=== PATIENT | male | born 1965 | race Caucasian/White ===

== ENCOUNTER 2024-11-27 10:53 | Inpatient (IN) ==
[2024-11-27] MEDS: NITROGLYCERIN SL 0.4 MG/TAB TAB SL PRN (11:12)
[2024-11-27] MEDS: ASPIRIN CHEW 324 MG PO STA (11:12)
[2024-11-27] MEDS: HEPARIN SOD (PORCINE) 1000 UNIT/ML IV ONE (11:18)
[2024-11-27] MEDS: TICAGRELOR 90 MG TAB PO ONE (11:19)
--- NOTE | 2024-11-27 11:20 | Emergency Department Note ---
Impression & Plan ST elevation myocardial infarction (STEMI), Chest pain, Hypertensive emergency ED Provider Note NAME: SIERRA RAMOS AGE: 59 SEX: M : 1965 ARRIVES VIA: Walk-In INFORMANT: Patient, nursing report ED PROVIDER(S): Ajit Arora MD CHIEF COMPLAINT: Chest pain MEDICAL DECISION MAKING: Patient presents due to concern for chest pain. IV was established and blood work was obtained. Initial EKG concerning some repeat obtained. Patient does have subtle changes inferiorly with associated lateral depressions and T wave inversions that are more pronounced. Patient was given the rest of 162 of aspirin as well as 180 of Brilinta. Nitro given for chest pain. Repeat blood pressure improved after nitro. Given these acute findings without prior for comparison do believe the patient would benefit from emergent [employer] intervention. Heart alert was called. I did speak with Dr. Leblanc he did evaluate the patient at the bedside. Patient ordered heparin bolus and drip. Nitro is ordered for chest pain. Patient reportedly had an episode of bradycardia that was brief with the patient dropped in the 40s and blood pressure was in the 100s. Patient was reassessed did feel a bit pale but the patient states that he was feeling fine. Patient's chest pain is virtually resolved. Patient was ordered 500 IV fluid bolus. Patient was receiving the heparin drip. Patient's blood work showed a normal white count H&H and platelet count. The patient's kidney function is unremarkable. BSG at 234 with initial troponin of 33.3. Lipase negative. The patient was reassessed several times thereafter. The patient did have an increase in his blood pressure and given the significant drop in associated bradycardia he experienced with the 0.4 mg of nitro and Nitropaste was ordered. This was placed on the chest. Patient did have improvement in his blood pressure. Patient was subsequently taken to the [facility] for intervention. I did speak with the on-call hospitalist service MARTHA Paulino PA-C and the patient was admitted to to the medicine service under Dr. Banda. Critical Care: I have personally spent 75 minutes of critical care time in direct management of this patient. This includes bedside care, interpretation of diagnostic studies, and testing, discussion with consultants, patient, and family members, and other require inpatient management activities. This 75 minutes is in excess of all separately billable procedures. Discussion w/ other healthcare providers: Dr. Leblanc mayonnaise mixer Dr. Banda inpatient hospitalist Prior /Outside records reviewed: None Differential diagnosis: Cardiac ischemia, aortic dissection, pulmonary embolism, pneumothorax, pneumonia, pericarditis, myocarditis, GERD, cholecystitis, pancreatitis, musculoskeletal, as well as other pathologies were considered. Diagnostics, as interpreted by me: ECG: Sinus with sinus arrhythmia, rate of 80, normal intervals, normal axis, trace elevation inferiorly with depressions in lateral leads. Repeat EKG completed 6 minutes later Sinus with sinus arrhythmia rate of 77 normal intervals normal axis, Q-wave more apparent in lead III with subtle elevation inferiorly with depressions anteriorly and laterally. Also present high lateral leads. Cardiac monitoring: An order was placed for continuous cardiac monitoring. The monitor shows a rate of 77 With sinus rhythm. Patient was placed on pulse oximetry Medical decision rules: Heart score Imaging studies: I informally interpreted the patient's with formal report to follow. HPI: Patient presents due to concern for chest pain that began around 6 8 AM this morning. The patient states that he got into the shower and that it presented. The patient did take 3 ibuprofen and 2 baby aspirin. No significant change. Patient does take medication for hypertension, hyperlipidemia and diabetes. Patient does follow with [facility]. Patient denies any cough or fever no leg swelling or calf pain. The patient did states that he did have some exertional pain when he was lifting some boxes on Friday. Patient states that this went away but returned this morning. The patient describes it as dull and achy centralized nonradiating some mild clamminess but no nausea or vomiting. Patient denies any history of DVT or PE. No leg swelling or calf pain. PAST MEDICAL HISTORY: Hypertension, hyperlipidemia, type 2 diabetes PAST SURGICAL HISTORY: No pertinent past surgical history SOCIAL HISTORY: Speaks Russian. Denies tobacco use. HOME MEDICATIONS: See Below ALLERGIES: See Below VITALS: See Below PHYSICAL EXAMINATION: GENERAL: NAD, non-toxic. EYE EXAM: Normal conjunctiva. PERRL, no anisocoria and EOM's grossly intact w/o pain. OROPHARYNX: Moist mucus membranes, grossly normal dentition. NECK: Trachea midline, no stridor. Supple, no nuchal rigidity, no adenopathy, non-tender. No signs of meningismus. FROM of the neck with good chin to chest and neck extension. LUNGS: Clear to auscultation. Normal chest wall mechanics. HEART: NSR, no MRG. ABDOMEN: Abdomen soft, non-tender, no masses, no rebound or guarding. BACK: No CVA TTP. SKIN: No rashes and no bruising. UPPER EXTREMITIES: Upper extremities are grossly normal. LOWER EXTREMITIES: Grossly normal, no edema. Negative Homans' sign bilaterally. NEURO EXAM: A&O x3, cranial nerves II-XII grossly intact, normal speech, moves all 4 extremities. 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 Beliefs That Will Affect Care: None Current Living Situation: Spouse Other Information That Helps Us Care for You: No Feels Safe at Home: Yes Assistive Devices: Glasses Allergies Allergies Allergy/AdvReac Type Severity Reaction Status Date / Time No Known Allergies Allergy Unverified 11/27/24 11:56 Home Meds Home Medications Medication Instructions Recorded Confirmed aspirin 81 mg chewable tablet 81 mg PO DAILY 11/27/24 11/27/24 atorvastatin 40 mg tablet 40 mg PO DAILY 11/27/24 11/27/24 ibuprofen 1 tab PO DIRECTED PRN Pain 11/27/24 11/27/24 lisinopril 10 mg tablet 10 mg PO DAILY 11/27/24 11/27/24 metformin 500 mg tablet 500 mg PO DAILY 11/27/24 11/27/24 Results & Data (ED) Vital Signs Vital Signs - 24 hr 11/27/24 10:56 11/27/24 11:05 11/27/24 11:06 Temperature 36.9 C Temperature Source Temporal Artery Scan Pulse Rate 69 Pulse Rate [Apical] 90 91 H Pulse Rate from SpO2 Sensor Pulse Rhythm [Apical] Respiratory Rate 20 15 17 Respiratory Effort / Characteristics Non-Labored Respiratory Depth Normal Blood Pressure 174/90 H Blood Pressure [Right Arm] 184/123 H Blood Pressure Mean 118 Blood Pressure Mean [Right Arm] 143 Pulse Oximetry 100 99 98 Oxygen Delivery Method Room Air Room Air Sepsis Recent Fever Within 48 Hours No Sepsis New/Unexplained Change in Mental Status No Sepsis Action Taken by Nursing No Action Required 11/27/24 11:06 11/27/24 11:06 11/27/24 11:09 Temperature Temperature Source Pulse Rate 91 H Pulse Rate [Apical] Pulse Rate from SpO2 Sensor 88 Pulse Rhythm [Apical] Respiratory Rate 20 Respiratory Effort / Characteristics Respiratory Depth Blood Pressure 184/123 H 184/123 H Blood Pressure [Right Arm] Blood Pressure Mean 136 136 Blood Pressure Mean [Right Arm] Pulse Oximetry 99 Oxygen Delivery Method Sepsis Recent Fever Within 48 Hours Sepsis New/Unexplained Change in Mental Status Sepsis Action Taken by Nursing 11/27/24 11:14 11/27/24 11:14 11/27/24 11:15 Temperature Temperature Source Pulse Rate Pulse Rate [Apical] 90 79 Pulse Rate from SpO2 Sensor Pulse Rhythm [Apical] Irregular Respiratory Rate 20 18 Respiratory Effort / Characteristics Respiratory Depth Blood Pressure 176/110 H Blood Pressure [Right Arm] 176/110 H 157/101 H Blood Pressure Mean 120 Blood Pressure Mean [Right Arm] 132 119 Pulse Oximetry 99 98 Oxygen Delivery Method Room Air Room Air Sepsis Recent Fever Within 48 Hours Sepsis New/Unexplained Change in Mental Status Sepsis Action Taken by Nursing 11/27/24 11:15 11/27/24 11:15 11/27/24 11:15 Temperature Temperature Source Pulse Rate 103 H Pulse Rate [Apical] Pulse Rate from SpO2 Sensor 100 H Pulse Rhythm [Apical] Respiratory Rate 17 Respiratory Effort / Characteristics Respiratory Depth Blood Pressure 157/101 H 157/101 H Blood Pressure [Right Arm] Blood Pressure Mean 118 118 Blood Pressure Mean [Right Arm] Pulse Oximetry 98 Oxygen Delivery Method Sepsis Recent Fever Within 48 Hours Sepsis New/Unexplained Change in Mental Status Sepsis Action Taken by Nursing 11/27/24 11:15 11/27/24 11:22 11/27/24 11:25 Temperature Temperature Source Pulse Rate Pulse Rate [Apical] 51 L Pulse Rate from SpO2 Sensor Pulse Rhythm [Apical] Respiratory Rate 20 Respiratory Effort / Characteristics Respiratory Depth Blood Pressure 157/101 H Blood Pressure [Right Arm] 115/73 Blood Pressure Mean 118 Blood Pressure Mean [Right Arm] 87 Pulse Oximetry 97 Oxygen Delivery Method Room Air Room Air Sepsis Recent Fever Within 48 Hours Sepsis New/Unexplained Change in Mental Status Sepsis Action Taken by Nursing 11/27/24 11:25 11/27/24 11:30 11/27/24 11:35 Temperature Temperature Source Pulse Rate Pulse Rate [Apical] 84 72 Pulse Rate from SpO2 Sensor Pulse Rhythm [Apical] Respiratory Rate 17 19 Respiratory Effort / Characteristics Respiratory Depth Blood Pressure Blood Pressure [Right Arm] 139/80 142/100 H Blood Pressure Mean Blood Pressure Mean [Right Arm] 99 114 Pulse Oximetry 96 96 Oxygen Delivery Method Room Air Room Air Room Air Sepsis Recent Fever Within 48 Hours Sepsis New/Unexplained Change in Mental Status Sepsis Action Taken by Nursing 11/27/24 11:45 11/27/24 11:50 11/27/24 12:00 Temperature Temperature Source Pulse Rate 96 H Pulse Rate [Apical] 90 92 H Pulse Rate from SpO2 Sensor Pulse Rhythm [Apical] Respiratory Rate 20 14 Respiratory Effort / Characteristics Respiratory Depth Blood Pressure Blood Pressure [Right Arm] 171/103 H 163/98 H Blood Pressure Mean Blood Pressure Mean [Right Arm] 125 119 Pulse Oximetry 98 97 Oxygen Delivery Method Room Air Room Air Sepsis Recent Fever Within 48 Hours Sepsis New/Unexplained Change in Mental Status Sepsis Action Taken by Nursing 11/27/24 12:10 11/27/24 12:13 Temperature Temperature Source Pulse Rate Pulse Rate [Apical] 93 H Pulse Rate from SpO2 Sensor Pulse Rhythm [Apical] Respiratory Rate 17 Respiratory Effort / Characteristics Respiratory Depth Blood Pressure Blood Pressure [Right Arm] Blood Pressure Mean Blood Pressure Mean [Right Arm] Pulse Oximetry 97 Oxygen Delivery Method Room Air Room Air Sepsis Recent Fever Within 48 Hours Sepsis New/Unexplained Change in Mental Status Sepsis Action Taken by [facility] Medications Current Medication List: was personally reviewed by me Laboratory Data Attestation: I reviewed the patient's lab results. 11/27/24 15:22 11/27/24 11:10 Lab Results 11/27/24 11/27/24 11/27/24 Range/Units 11:10 11:11 12:35 WBC 10.41 (4.8-10.8) K/ul RBC 5.65 (4.70-6.10) M/uL Hgb 17.0 (14.0-18.0) g/dl Hct 48.9 (42.0-52.0) % MCV 86.5 (80.0-100.0) fL MCH 30.1 (25.0-34.0) pg MCHC 34.8 (32.0-36.0) g/dL RDW Std Deviation 39.4 (36.4-46.3) fL RDW Coeff of Hui 12.4 (11.5-14.5) % Plt Count 228 (130-400) K/uL MPV 10.3 (9.4-12.4) fL Immature Gran % (Auto) 0.4 % Neut % (Auto) 77.1 % Lymph % (Auto) 15.2 % Desha % (Auto) 6.3 % Eos % (Auto) 0.6 % Baso % (Auto) 0.4 % Neut # (Auto) 8.03 H (1.40-6.50) K/uL Lymph # (Auto) 1.58 (1.20-3.40) K/uL Desha # (Auto) 0.66 H (0.11-0.59) K/uL Eos # (Auto) 0.06 (0.00-0.50) K/uL Baso # (Auto) 0.04 (0.00-0.20) K/uL Immature Gran # (Auto) 0.04 (0.01-0.20) K/uL PT 10.9 (9.0-12.0) Seconds INR 1.0 (0.9-1.1) APTT 23 (21-31) Seconds PTT Ratio 0.9 Activ Coag Time Kaolin 141 H (94-140) SECONDS Sodium 136 (136-145) mmol/L Potassium 3.6 (3.5-5.1) mmol/L Chloride 101 (98-107) mmol/L Carbon Dioxide 24 (21-32) mmol/L Anion Gap 11 (3-11) BUN 10 (6-23) mg/dl Creatinine 1.38 (0.6-1.4) mg/dl Est Cr Clr Drug Dosing 54.4 ml/min eGFR 58.18 BUN/Creatinine Ratio 7.2 L (10-20) Glucose 234 H (70-99(Fasting)) mg/dl Calcium 9.3 (8.6-10.3) mg/dl Total Bilirubin 0.8 (0.2-1.0) mg/dl AST 20 (13-39) U/L ALT 23 (7-52) U/L Alkaline Phosphatase 66 (34-104) U/L Troponin I High Sens 33.3 H (0-20) pg/ml Total Protein 7.6 (6.0-8.3) gm/dl Albumin 4.8 (3.4-5.0) gm/dl Globulin 2.8 (2.5-4.0) gm/dl Albumin/Globulin Ratio 1.7 (0.9-2) Lipase 28 (11-82) U/L Blood Type B Positive Antibody Screen NEGATIVE Administered Medications Discontinued Medications Aspirin (Aspirin Chew 324 Mg) 162 mg PO NOW STA Stop: 11/27/24 11:08 Last Admin: 11/27/24 11:12 Dose: 162 mg Documented By: DWAYNE Atropine Sulfate (Atropine Sulfate 0.1 Mg/Ml 10ml Syr) Confirm Administered Dose 1 mg IV .STK-MED ONE Stop: 11/27/24 13:03 Last Admin: 11/27/24 14:26 Dose: 0.5 mg Documented By: ANA LILIA Eptifibatide (Eptifibatide 2 Mg/Ml 10 Ml Vial ([employer] Use Only)) Confirm Administered Dose 40 mg IV .STK-MED ONE Stop: 11/27/24 13:17 Last Admin: 11/27/24 14:26 Dose: 12 ml Documented By: ANA LIILA Eptifibatide (Eptifibatide 0.75 Mg/Ml 75mg Vial ([employer] Use Only)) Confirm Administered Dose 75 mg IV .STK-MED ONE Stop: 11/27/24 13:18 Last Admin: 11/27/24 14:27 Dose: 75 mg Documented By: ANA LILIA Fentanyl Citrate (Fentanyl Citrate Pf 100 Mcg/2 Ml Vial) Confirm Administered Dose 100 mcg .ROUTE .STK-MED ONE Stop: 11/27/24 11:16 Last Admin: 11/27/24 14:25 Dose: 100 mcg Documented By: ANA LILIA Heparin Sodium (Porcine) (Heparin Sod (Porcine) 1000 Unit/Ml) 4,250 units IV NOW ONE Stop: 11/27/24 11:11 Last Admin: 11/27/24 11:18 Dose: 4,250 units Documented By: JOSE L Co-signed By: DWAYNE Heparin Sodium (Porcine) (Heparin (Porcine) 1000 Unit/Ml 10 Ml ([employer] Use Only)) Confirm Administered Dose 10,000 units .ROUTE .STK-MED ONE Stop: 11/27/24 11:15 Last Admin: 11/27/24 14:25 Dose: 9,500 units Documented By: ANA LILIA Heparin Sodium (Porcine) (Heparin (Porcine) 1000 Unit/Ml 10 Ml ([employer] Use Only)) Confirm Administered Dose 10,000 units .ROUTE .STK-MED ONE Stop: 11/27/24 14:32 Last Admin: 11/27/24 14:33 Dose: 1,000 units Documented By: ANA LILIA Heparin Sodium/Dextrose (Heparin Iv Adult Wt-Based Low-Dose *No* Initial Bolus Protocol) 1 each IV ONE STA; Protocol Stop: 11/27/24 11:15 Last Admin: 11/27/24 15:12 Dose: Not Given Documented By: LAURA Heparin Sodium/Sodium Chloride (Heparin In Nss Infusion 1000 Unit/500 Ml (2 U/Ml) Bag) Confirm Administered Dose 3,000 units IV .STK-MED ONE Stop: 11/27/24 11:16 Last Admin: 11/27/24 12:25 Dose: 3,000 units Documented By: ANA LILIA Heparin Sodium/Dextrose (Heparin 90726 Unit/500 Ml D5w) 25,000 units in 500 mls @ 17 mls/hr IV .Q24H [facility]; Protocol Stop: 12/27/24 11:29 Last Titration: 11/27/24 15:13 Dose: Infused Documented By: LAURA Co-signed By: MILENA Admin: 11/27/24 11:47 Dose: 850 units/hr, 17 mls/hr Documented By: DWAYNE Co-signed By: ALTAGRACIA Sodium Chloride (Nss) 500 mls @ 999 mls/hr IV .Q31M ONE Stop: 11/27/24 12:09 Last Infusion: 11/27/24 12:07 Dose: Infused Documented By: JOSE L Admin: 11/27/24 11:30 Dose: 999 mls/hr Documented By: DWAYNE Ioversol (Optiray 350) Confirm Administered Dose 1 ml .ROUTE .STK-MED ONE Stop: 11/27/24 11:16 Last Admin: 11/27/24 14:25 Dose: 445 ml Documented By: EDWINA Midazolam HCl (Midazolam Hcl 1 Mg/Ml 2ml Vial) Confirm Administered Dose 2 mg .ROUTE .STK-MED ONE Stop: 11/27/24 11:15 Last Admin: 11/27/24 14:25 Dose: 2 mg Documented By: ANA LILIA Midazolam HCl (Midazolam Hcl 1 Mg/Ml 2ml Vial) Confirm Administered Dose 2 mg .ROUTE .STK-MED ONE Stop: 11/27/24 12:33 Last Admin: 11/27/24 14:26 Dose: 2 mg Documented By: ANA LILIA Nicardipine HCl (Nicardipine Hcl Inj 2.5 Mg/Ml 10 Ml Amp) Confirm Administered Dose 25 mg .ROUTE .STK-MED ONE Stop: 11/27/24 11:16 Last Admin: 11/27/24 12:27 Dose: 25 mg Documented By: ANA LILIA Nitroglycerin (Nitroglycerin Sl 0.4 Mg/Tab Tab) 0.4 mg SL Q5M PRN PRN Reason: Chest Pain Stop: 12/27/24 11:06 Last Admin: 11/27/24 11:18 Dose: 0.4 mg Documented By: JOSE L Admin: 11/27/24 11:12 Dose: 0.4 mg Documented By: DWAYNE Nitroglycerin (Nitroglycerin 2% Ointment 30gm Tube) 1 inch EXT NOW STA Stop: 11/27/24 11:50 Last Admin: 11/27/24 11:56 Dose: 1 inch Documented By: DWAYNE Nitroglycerin/Dextrose (Nitroglycerin/D5w 100mcg/Ml 20ml Syr) Confirm Administered Dose 2,000 mcg .ROUTE .STK-MED ONE Stop: 11/27/24 11:16 Last Admin: 11/27/24 12:27 Dose: 2,000 mcg Documented By: ANA LILIA Ondansetron HCl (Ondansetron Inj 2 Mg/Ml 2 Ml Vial) Confirm Administered Dose 4 mg .ROUTE .ST-MED ONE Stop: 11/27/24 13:12 Last Admin: 11/27/24 14:26 Dose: Not Given Documented By: ANA LILIA Potassium Chloride (Potassium Chloride Crtab 20 Meq Tabcr) 40 meq PO NOW STA Stop: 11/27/24 15:12 Last Admin: 11/27/24 15:18 Dose: 40 meq Documented By: LAURA Ticagrelor (Ticagrelor 90 Mg Tab) 180 mg PO ONE ONE Stop: 11/27/24 11:11 Last Admin: 11/27/24 11:19 Dose: 180 mg Documented By: JOSE L Imaging Data Radiologist's Impression: Chest X-Ray 11/27/24 11:07 HISTORY: Chest pain. TECHNIQUE: Portable AP radiograph of the chest. COMPARISON: conveyor monitor leads overlie the chest. FINDINGS: No focal lung consolidation. No pneumothorax or pleural effusion. Normal heart size. Left-sided aortic arch. Midline trachea. No acute osseous abnormality. The included upper abdomen is unremarkable. IMPRESSION: No acute cardiopulmonary findings. Electronically signed by Jeff Lerma 11-27-2024 12:00 PM Discharge Plan Visit Data Chief Complaint: Chest Pain Stated Complaint: CHEST PAIN ED Provider: Ajit Arora Discharge Problem: ST elevation myocardial infarction (STEMI), Chest pain, Hypertensive emergency Discharge Instructions Interventions: ED Discharge Assessment Last Done: 11/27/24 12:13 Discharge Problem: ST elevation myocardial infarction (STEMI) Qualifiers: Involved coronary artery: right coronary artery Qualified Code(s): I21.11 - ST elevation (STEMI) myocardial infarction involving right coronary artery Chest pain Qualifiers: Chest pain type: unspecified Qualified Code(s): R07.9 - Chest pain, unspecified
[2024-11-27] MEDS: SODIUM CHLORIDE 0.9% 500 ML IV ONE (11:30)
[2024-11-27 11:35] LABS: Basophils # (auto) 0.04 K/uL (0.00-0.20); Basophils % (auto) 0.4 %; Eosinophils # (auto) 0.06 K/uL (0.00-0.50); Eosinophils % (auto) 0.6 %; Hematocrit (blood only) 48.9 % (42.0-52.0); Immature Granulocytes # (auto) 0.04 K/uL (0.01-0.20); Immature Granulocytes % (auto) 0.4 %; Lymphocytes # (auto) 1.58 K/uL (1.20-3.40); Lymphocytes % (auto) 15.2 %; Mean Corpuscular Hemoglobin 30.1 pg (25.0-34.0); Mean Corpuscular Hgb Conc 34.8 g/dL (32.0-36.0); Mean Corpuscular Volume 86.5 fL (80.0-100.0); Mean Platelet Volume 10.3 fL (9.4-12.4); Monocytes # (auto) 0.66 K/uL (0.11-0.59); Monocytes % (auto) 6.3 %; Neutrophils # (auto) 8.03 K/uL (1.40-6.50); Neutrophils % (auto) 77.1 %; Platelet Count 228 K/uL (130-400); RDW Coefficient of Variation 12.4 % (11.5-14.5); RDW Standard Deviation 39.4 fL (36.4-46.3); Red Blood Count 5.65 M/uL (4.70-6.10); White Blood Count 10.41 K/ul (4.8-10.8)
[2024-11-27 11:46] LABS: Albumin Globulin Ratio 1.7 (0.9-2); Albumin Level 4.8 gm/dl (3.4-5.0); BUN Creatinine Ratio 7.2 (10-20); Bilirubin,Total 0.8 mg/dl (0.2-1.0); Calcium 9.3 mg/dl (8.6-10.3); Creatinine Clr Calc Pharmacy 54.4 ml/min; Globulin 2.8 gm/dl (2.5-4.0); Potassium 3.6 mmol/L (3.5-5.1); Total Protein 7.6 gm/dl (6.0-8.3)
[2024-11-27] MEDS: HEPARIN 25000 UNIT/500 ML D5W 25,000 UNITS/500 ML BAG IV SCH (11:47)
[2024-11-27 11:53] LABS: Troponin I High Sensitivity 33.3 pg/ml (0-20)
[2024-11-27] MEDS: NITROGLYCERIN 2% OINTMENT 30GM TUBE EXT STA (11:56)
--- NOTE | 2024-11-27 12:00 | XRay Report ---
HISTORY: Chest pain. TECHNIQUE: Portable AP radiograph of the chest. COMPARISON: quality assurance monitor leads overlie the chest. FINDINGS: No focal lung consolidation. No pneumothorax or pleural effusion. Normal heart size. Left-sided aortic arch. Midline trachea. No acute osseous abnormality. The included upper abdomen is unremarkable. IMPRESSION: No acute cardiopulmonary findings. Electronically signed by Jeff Lerma 11-27-2024 12:00 PM
[2024-11-27 12:12] LABS: Partial Thromboplastin Ratio 0.9; Partial Thromboplastin Time 23 Seconds (21-31); Prothrombin Time 10.9 Seconds (9.0-12.0)
--- NOTE | 2024-11-27 12:12 | Pre Anesthesia Assessment ---
Date of Service November 27, 2024 Pre Sedation Assessment Vital Signs Temp Pulse Pulse Resp BP BP Pulse Ox 11/27/24 12:00 92 H 14 163/98 H 97 11/27/24 11:50 96 H 11/27/24 11:45 90 20 171/103 H 98 11/27/24 11:35 72 19 142/100 H 96 11/27/24 11:30 84 17 139/80 96 11/27/24 11:25 11/27/24 11:25 11/27/24 11:22 51 L 20 115/73 97 11/27/24 11:15 157/101 H 11/27/24 11:15 157/101 H 11/27/24 11:15 157/101 H 11/27/24 11:15 103 H 17 98 11/27/24 11:15 79 18 157/101 H 98 11/27/24 11:14 176/110 H 11/27/24 11:14 90 20 176/110 H 99 11/27/24 11:09 91 H 20 99 11/27/24 11:06 184/123 H 11/27/24 11:06 184/123 H 11/27/24 11:06 91 H 17 184/123 H 98 11/27/24 11:05 90 15 99 11/27/24 10:56 36.9 C 69 20 174/90 H 100 O2 Del Method 11/27/24 12:00 Room Air 11/27/24 11:50 11/27/24 11:45 Room Air 11/27/24 11:35 Room Air 11/27/24 11:30 Room Air 11/27/24 11:25 Room Air 11/27/24 11:25 Room Air 11/27/24 11:22 Room Air 11/27/24 11:15 11/27/24 11:15 11/27/24 11:15 11/27/24 11:15 11/27/24 11:15 Room Air 11/27/24 11:14 11/27/24 11:14 Room Air 11/27/24 11:09 11/27/24 11:06 11/27/24 11:06 11/27/24 11:06 Room Air 11/27/24 11:05 11/27/24 10:56 Room Air Cardiovascular RRR, no murmur, no edema Respiratory normal respiratory effort, lungs clear to auscultation Pre-Sedation Airway Assessment Smoking Status: Never smoker Mallampati 2 ASA 4 Notes The planned sedation has been discussed with the patient. Informed Consent was obtained. I have identified the patient, determined the appropriateness of sedation and have assessed the patient immediately prior to the procedure. All medicine(s) and interventions are by my order. [facility] [place] Procedure Codes (Charges) Indication for Procedure Indication for procedure: Non-ST elevation NM
--- NOTE | 2024-11-27 12:21 | Cardiology Consultation ---
Date of Consultation November 27, 2024 Assessment & Plan (1) Atherogenic dyslipidemia: Patient is high risk (diabetes and CAD). High intensity statin therapy is recommended. He was already on a atorvastatin 40 mg daily. Will check a lipid panel and then adjust his cholesterol regimen as indicated by results. For now he will remain on a atorvastatin 40 mg daily. (2) Non-ST elevation MD (NSTEMI): Patient is EKG does not meet criteria for acute ST elevation MD. He did have inferior Q waves suggesting prior MD and based on the catheterization with significant collaterals to the right most of his disease was chronic. There was some staining proximally which was probably the new part of the MD. Complex PCI was undertaken and eventually he was noted to have good angiographic results after implantation of 4 overlapped drug-eluting stents. No symptoms at this time. Will continue to follow his troponins, check an echocardiogram particularly with regard to EF, and he will remain in ICU for 24 hours as per standard of care. If he has no high risk findings on his troponin or his echo then he may be appropriate for earlier discharge. For now he will be on aspirin 81 mg daily, Brilinta 90 mg p.o. twice daily, we started metoprolol to tartrate 25 mg p.o. twice daily, and we continued his lisinopril but reduced the dose to 5 mg daily. Will see what his blood pressure does and adjust his regimen further. Further recommendations pending results of echo and blood work. (3) Hypertensive emergency: I feel that most likely his symptoms were driven by severe underlying coronary disease with acute hypertensive urgency increasing the workload and making him symptomatic. The EKG changes are most consistent with at presentation although there certainly could have been a small amount of thrombus or acute plaque rupture in the right coronary as well. In any case, it is imperative that we control his blood pressure. Adding beta-oxana and continue lisinopril. I am using IV hydralazine as needed to maintain SBP less than 150 mmHg. Will make additional adjustments in his medical regimen pending on how he responds to this overnight. Plan Approximately 24 hours in ICU per standard of care. If he has an uneventful night then he will be appropriate for stepdown unit tomorrow. Typically would keep acute MD for 48 hours minimum. There is a possibility that he does not have much in the way of troponin elevation and that the hypertensive urgency was the main delivery driver assistant here. In that case, as long as his blood pressure is controlled he could be discharged as early as tomorrow evening. I will follow-up with the patient tomorrow. History of Present Illness Reason for Consultation: Chest pain, EKG changes History of Present Illness 59-year-old diabetic male who is also treated for hypertension and dyslipidemia presented to the emergency department after developing chest pain beginning around 6-8 o'clock this morning. He took aspirin and nonsteroidals at home but his pain did not significantly improved. He therefore came to the emergency department. Here, his blood pressure was very elevated and the EKG was obtained suggesting ischemic changes. He did not meet criteria for ST elevation MD. A "heart alert" was called. On my arrival the patient had significantly improved chest pain only rated about 3-4 in severity. Evidently, he had some intermittent chest pain which was self-limited over the few days prior to this presentation. Unfortunately, I do not have any records from the outpatient setting as he follows with [facility]. I spoke with the emergency department physician to begin immediate medical therapy and we planned for s ubsequent definitive evaluation by coronary angiography. Treatment plan included in addition to the aspirin he already has taken to begin heparin as a bolus followed by drip, Brilinta 180 mg p.o. x 1, and treatment for his elevated blood pressures. This resulted in significant improvement in his chest pain. Patient was taken emergently to the cardiac catheterization suite and underwent diagnostic coronary angiography revealing occluded RCA. This appeared to be more chronic than acute but there was some staining. Decision was made to proceed with complex PCI of the RCA which included intracoronary lithotripsy and implantation of 4 overlapped drug-eluting stents extending from the ostium of the RCA through the early distal segment. No complications and good angiographic results were observed. Patient had no chest pain. He is now admitted to the ICU for further workup and management. I discussed the case with the patient and his postprocedure. Allergies Allergy/AdvReac Type Severity Reaction Status Date / Time No Known Allergies Allergy Unverified 11/27/24 11:56 Home Medications Medication Instructions Recorded Confirmed Type aspirin 81 mg chewable tablet 81 mg PO DAILY 11/27/24 11/27/24 History atorvastatin 40 mg tablet 40 mg PO DAILY 11/27/24 11/27/24 History ibuprofen 1 tab PO DIRECTED PRN Pain 11/27/24 11/27/24 History lisinopril 10 mg tablet 10 mg PO DAILY 11/27/24 11/27/24 History metformin 500 mg tablet 500 mg PO DAILY 11/27/24 11/27/24 History Patient History Social History Smoking Status: Never smoker Preferred Language: Nepali Feels Safe at Home: Yes Review of Systems Review of Systems: Negative except as per HPI Physical Exam Constitutional: WD/WN, vitals as above Eyes: Extraocular muscles intact. Sclera are anicteric. ENMT: Oral mucosa is pink moist and intact Neck: No JVD Respiratory: Clear to auscultation bilaterally. No wheezing, rhonchi, or rales. Cardiovascular: Regular rate and rhythm. S4 gallop. No rubs or murmurs appreciated in the emergency department. No edema. Good distal pulses. Musculoskeletal: no cyanosis or clubbing, extremities motor strength 5/5 Neurologic: Cognition is intact. Speech is fluent. No focal deficits. Psychiatric: A+Ox3, euthymic affect Results & Data Vital Signs (Past 12 Hours) Vital Signs Temp Pulse Pulse Resp BP BP Pulse Ox 11/27/24 12:13 11/27/24 12:10 93 H 17 97 11/27/24 12:00 92 H 14 163/98 H 97 11/27/24 11:50 96 H 11/27/24 11:45 90 20 171/103 H 98 11/27/24 11:35 72 19 142/100 H 96 11/27/24 11:30 84 17 139/80 96 11/27/24 11:25 11/27/24 11:25 11/27/24 11:22 51 L 20 115/73 97 11/27/24 11:15 157/101 H 11/27/24 11:15 157/101 H 11/27/24 11:15 157/101 H 11/27/24 11:15 103 H 17 98 11/27/24 11:15 79 18 157/101 H 98 11/27/24 11:14 176/110 H 11/27/24 11:14 90 20 176/110 H 99 11/27/24 11:09 91 H 20 99 11/27/24 11:06 184/123 H 11/27/24 11:06 184/123 H 11/27/24 11:06 91 H 17 184/123 H 98 11/27/24 11:05 90 15 99 11/27/24 10:56 36.9 C 69 20 174/90 H 100 O2 Del Method 11/27/24 12:13 Room Air 11/27/24 12:10 Room Air 11/27/24 12:00 Room Air 11/27/24 11:50 11/27/24 11:45 Room Air 11/27/24 11:35 Room Air 11/27/24 11:30 Room Air 11/27/24 11:25 Room Air 11/27/24 11:25 Room Air 11/27/24 11:22 Room Air 11/27/24 11:15 11/27/24 11:15 11/27/24 11:15 11/27/24 11:15 11/27/24 11:15 Room Air 11/27/24 11:14 11/27/24 11:14 Room Air 11/27/24 11:09 11/27/24 11:06 11/27/24 11:06 11/27/24 11:06 Room Air 11/27/24 11:05 11/27/24 10:56 Room Air PG Care Time/CCT Total # of Minutes Spent Total Time Spent with Patient: Total time spent is greater than 50% in coordination of care (as documented) at patient's floor/unit and/or counseling patient: I spent a total of 60 minutes critical care time in the initial evaluation of the patient, review of the records, formulation and implementation of a plan of care, discussion with care team in the ER, Baseball Glove Stuffer, and with the patient and his spouse. This time also includes all associated documentation but is exclusive of the time spent for the procedure. Coding Level of Care Code 39131 CRITICAL CARE 1ST 30-74M Diagnoses Atherogenic dyslipidemia E78.5 Non-ST elevation MD (NSTEMI) I21.4 Hypertensive emergency I16.1 Time Spent (min) 60
[2024-11-27] MEDS: niCARdipine HCL INJ 2.5 MG/ML 10 ML AMP ONE (12:27)
[2024-11-27] MEDS: NITROGLYCERIN/D5W 100MCG/ML 20ML SYR ONE (12:27)
--- NOTE | 2024-11-27 12:57 | Critical Care Consultation ---
Date of Consultation November 27, 2024 Assessment & Plan (1) Coronary artery disease: (2) Hypertension: (3) Diabetes mellitus: Plan -- STEMI S/p cardiac cath, 4 CARMELITA placed in RCA Continue with dual antiplatelet therapy Trend troponin EKG Initial EKG at the time of presentation showed mild elevation of ST elevation in the inferior with reciprocal ST depression in the lateral leads -- Hypertension and dyslipidemia On lisinopril at home -- Diabetes On metformin at home ICU hypoglycemia protocol --Prophylaxis VTE: IPC GI: None Lines: Peripheral Diet: Cardiac Plan: Strict in and out Continue to hold metformin and have the patient on ICU hypoglycemia protocol Patient's blood pressure is a bit on the higher side. If it is persistently high then I will give him metoprolol 25 mg. Trend troponin and EKG Potassium being replaced Follow-up 2D echo, HbA1c as well as lipid profile in the morning Please note the above document was generated using voice recognition software. It may contain grammatical, syntax or spelling errors.Any formal questions or concerns about the content, text or information contained within the body of this dictation should be directly addressed to the provider for clarification. History of Present Illness Attending Physician: Conrado Leblanc MD, PhD History of Present Illness 59-year-old male present to the hospital with complaints of chest pain Past medical history: Hypertension, diabetes, dyslipidemia Heart rate was: Patient was taken to the Wire Straightener Sent to the ICU for further care Initial EKG at the time of presentation showed mild elevation of ST elevation in the inferior with reciprocal ST depression in the lateral leads At the time of examination patient systolic blood pressure was in the 150s, heart rate in the 80s and saturation 94-95% on room air History is feeling much better compared to when he came to the hospital. Denied any chest pain. No shortness of breath No nausea or vomiting No abdominal pain Fair appetite Social history: Lifetime non-smoker. Strong family history of heart problems in mother side. Allergies Allergy/AdvReac Type Severity Reaction Status Date / Time No Known Allergies Allergy Unverified 11/27/24 11:56 Home Medications Medication Instructions Recorded Confirmed Type aspirin 81 mg chewable tablet 81 mg PO DAILY 11/27/24 11/27/24 History atorvastatin 40 mg tablet 40 mg PO DAILY 11/27/24 11/27/24 History ibuprofen 1 tab PO DIRECTED PRN Pain 11/27/24 11/27/24 History lisinopril 10 mg tablet 10 mg PO DAILY 11/27/24 11/27/24 History metformin 500 mg tablet 500 mg PO DAILY 11/27/24 11/27/24 History Patient History Social History Smoking Status: Never smoker Hx Alcohol Use: Yes Alcohol type: beer Hx Substance Use: No Preferred Language: Mexican Kitchen Food Assembler Required: No Beliefs That Will Affect Care: None Current Living Situation: Spouse Other Information That Helps Us Care for You: No Feels Safe at Home: Yes Assistive Devices: Glasses Review of Systems 2 Review of Systems: All systems reviewed & are unremarkable except as noted in HPI & below Physical Exam 2 Physical Exam: Constitutional: No acute distress HEENT: EOMI, PERRLA Respiratory system: Good air entry bilaterally, no wheeze, no rhonchi, no crackles CVS: S1-S2 positive, no murmurs or gallops Abdomen: Soft, nontender, nondistended, positive bowel sounds x4 Extremities: +2 pulses bilaterally radialis/ dorsalis pedis, no cyanosis, no edema Neuro: Awake alert oriented x3 Psych: Normal mood and affect G/U: No Miller Skin: no rashes, warm and dry Lymphatic: no cervical or axillary lymphadenopathy Results & Data Results & Data Vital Signs (Past 12 Hours) Vital Signs Temp Pulse Pulse Resp BP BP Pulse Ox 11/27/24 12:13 11/27/24 12:10 93 H 17 97 11/27/24 12:00 92 H 14 163/98 H 97 11/27/24 11:50 96 H 11/27/24 11:45 90 20 171/103 H 98 11/27/24 11:35 72 19 142/100 H 96 11/27/24 11:30 84 17 139/80 96 11/27/24 11:25 11/27/24 11:25 11/27/24 11:22 51 L 20 115/73 97 11/27/24 11:15 157/101 H 11/27/24 11:15 157/101 H 11/27/24 11:15 157/101 H 11/27/24 11:15 103 H 17 98 11/27/24 11:15 79 18 157/101 H 98 11/27/24 11:14 176/110 H 11/27/24 11:14 90 20 176/110 H 99 11/27/24 11:09 91 H 20 99 11/27/24 11:06 184/123 H 11/27/24 11:06 184/123 H 11/27/24 11:06 91 H 17 184/123 H 98 11/27/24 11:05 90 15 99 11/27/24 10:56 36.9 C 69 20 174/90 H 100 O2 Del Method 11/27/24 12:13 Room Air 11/27/24 12:10 Room Air 11/27/24 12:00 Room Air 11/27/24 11:50 11/27/24 11:45 Room Air 11/27/24 11:35 Room Air 11/27/24 11:30 Room Air 11/27/24 11:25 Room Air 11/27/24 11:25 Room Air 11/27/24 11:22 Room Air 11/27/24 11:15 11/27/24 11:15 11/27/24 11:15 11/27/24 11:15 11/27/24 11:15 Room Air 11/27/24 11:14 11/27/24 11:14 Room Air 11/27/24 11:09 11/27/24 11:06 11/27/24 11:06 11/27/24 11:06 Room Air 11/27/24 11:05 11/27/24 10:56 Room Air Laboratory Results 11/27/24 11:10 11/27/24 11:10 [place] [address] INT INP/OBS CARE MIN Patient Type New Diagnoses Coronary artery disease I25.10 Hypertension I10 Diabetes mellitus E11.9
--- NOTE | 2024-11-27 13:05 | History & Physical Report ---
Date of Service November 27, 2024 Assessment & Plan (1) ST elevation myocardial infarction (STEMI): Plan: Patient was brought to the hospital for chest pain started about 6 to 7 hours prior to presentation. He took aspirin at home and did not subside so he came to the hospital. On arrival in the emergency department, EKG showed some ST changes, troponin was 33, he was subsequently started on heparin by weight, Brilinta, cardiology was consulted. Plan is to take him to cardiac cath Appreciate cardiology recs (2) Hypertensive emergency: Plan: Presents with elevated blood pressure, 160, 170 systolic with suspected myocardial injury Given Nicardipine in the ER Will continue to monitor On lisinopril at home History of Present Illness Chief Complaint: chest pain Primary Care Provider: NO PCP This is a 59-year-old male with a history of type 2 diabetes, hypertension, hyperlipidemia, who was brought to the hospital for chest pains. According to the patient, pain started about 6 to 7 hours prior to presentation. At home, he took aspirin and some NSAIDs but the pain did not improve. Upon arrival to the emergency department, an EKG was done which showed some changes of T wave inversion, blood pressure was also elevated. Also in the ED, he was started on heparin by weight and also given Brilinta,Cardiology was consulted after a heart alert was called at the decision was made to take him immediately to the cardiac Auto Clocks Repairer. He will go to ICU post cath Allergies Allergy/AdvReac Type Severity Reaction Status Date / Time No Known Allergies Allergy Unverified 11/27/24 11:56 Home Medications Medication Instructions Recorded Confirmed Type aspirin 81 mg chewable tablet 81 mg PO DAILY 11/27/24 11/27/24 History atorvastatin 40 mg tablet 40 mg PO DAILY 11/27/24 11/27/24 History ibuprofen 1 tab PO DIRECTED PRN Pain 11/27/24 11/27/24 History lisinopril 10 mg tablet 10 mg PO DAILY 11/27/24 11/27/24 History metformin 500 mg tablet 500 mg PO DAILY 11/27/24 11/27/24 History Past Med/Surg History Problem List (Updated 11/27/24 @ 12:57 by Ajit Arora MD) Hypertensive emergency (Acute) Chest pain (Acute) ST elevation myocardial infarction (STEMI) (Acute) Social History Smoking Status: Never smoker Preferred Language: Cuban Feels Safe at Home: Yes Review of Systems Review of Systems: All systems reviewed are negative, apart from the ones contained in the history. Physical Exam Physical Exam: The patient is awake, alert and oriented 3, well developed and well nourished, normocephalic and atraumatic, lying in bed and in no acute distress. HEENT--PERRL, EOMI, mucous membranes and oropharynx mildly dry Neck--supple. No JVD. No bruits. Thyroid normal, trachea midline, no adenopathy. Heart--normal S1 and S2. No murmurs, rubs or gallops. Lungs--clear bilaterally, no respiratory distress, no accessory muscle use. Abdomen--normal bowel sounds and soft. Extremities--no cyanosis or clubbing. No edema. Dermatologic--normal skin turgor, normal color, no abnormal lymph nodes, no rash. Neurologic--cranial nerves II through XII grossly intact. Rheumatologic--normal range of motion. Psychiatric--normal affect. Results & Data Results & Data Vital Signs (Past 12 Hours) Vital Signs Temp Pulse Pulse Resp BP BP Pulse Ox 11/27/24 12:13 11/27/24 12:10 93 H 17 97 11/27/24 12:00 92 H 14 163/98 H 97 11/27/24 11:50 96 H 11/27/24 11:45 90 20 171/103 H 98 11/27/24 11:35 72 19 142/100 H 96 11/27/24 11:30 84 17 139/80 96 11/27/24 11:25 11/27/24 11:25 11/27/24 11:22 51 L 20 115/73 97 11/27/24 11:15 157/101 H 11/27/24 11:15 157/101 H 11/27/24 11:15 157/101 H 11/27/24 11:15 103 H 17 98 11/27/24 11:15 79 18 157/101 H 98 11/27/24 11:14 176/110 H 11/27/24 11:14 90 20 176/110 H 99 11/27/24 11:09 91 H 20 99 11/27/24 11:06 184/123 H 11/27/24 11:06 184/123 H 11/27/24 11:06 91 H 17 184/123 H 98 11/27/24 11:05 90 15 99 11/27/24 10:56 98.4 F 69 20 174/90 H 100 O2 Del Method 11/27/24 12:13 Room Air 11/27/24 12:10 Room Air 11/27/24 12:00 Room Air 11/27/24 11:50 11/27/24 11:45 Room Air 11/27/24 11:35 Room Air 11/27/24 11:30 Room Air 11/27/24 11:25 Room Air 11/27/24 11:25 Room Air 11/27/24 11:22 Room Air 11/27/24 11:15 11/27/24 11:15 11/27/24 11:15 11/27/24 11:15 11/27/24 11:15 Room Air 11/27/24 11:14 11/27/24 11:14 Room Air 11/27/24 11:09 11/27/24 11:06 11/27/24 11:06 11/27/24 11:06 Room Air 11/27/24 11:05 11/27/24 10:56 Room Air PG Care Time/CCT Total # of Minutes Spent Total Time Spent with Patient: Total time spent is greater than 50% in coordination of care (as documented) at patient's floor/unit and/or counseling patient: Coding Level of Care Code 68137 INT INP/OBS CARE 3/75MIN Diagnoses ST elevation myocardial infarction (STEMI) I21.11 Involved coronary artery: right coronary artery Hypertensive emergency I16.1 Time Spent (min) 75 (1) ST elevation myocardial infarction (STEMI) Involved coronary artery: right coronary artery Qualified Code(s): I21.11 - ST elevation (STEMI) myocardial infarction involving right coronary artery
[2024-11-27] MEDS: MIDAZOLAM HCL 1 MG/ML 2ML VIAL ONE ×2 (14:25→14:26)
[2024-11-27] MEDS: fentaNYL citrate PF 100 MCG/2 ML VIAL ONE (14:25)
[2024-11-27] MEDS: OPTIRAY 350 ONE (14:25)
[2024-11-27] MEDS: HEPARIN (PORCINE) 1000 UNIT/ML 10 ML (CATH LAB USE ONLY) ONE ×2 (14:25→14:33)
[2024-11-27] MEDS: ONDANSETRON INJ 2 MG/ML 2 ML VIAL ONE (14:26)
[2024-11-27] MEDS: EPTIFIBATIDE 2 MG/ML 10 ML VIAL (CATH LAB USE ONLY) IV ONE (14:26)
[2024-11-27] MEDS: ATROPINE SULFATE 0.1 MG/ML 10ML SYR IV ONE (14:26)
[2024-11-27] MEDS: EPTIFIBATIDE 0.75 MG/ML 75MG VIAL (CATH LAB USE ONLY) IV ONE (14:27)
--- NOTE | 2024-11-27 14:32 | Post Anesthesia Assessment ---
Date of Service November 27, 2024 Post Sedation Assessment Vital Signs Temp Pulse Pulse Resp BP BP Pulse Ox 11/27/24 12:13 11/27/24 12:10 93 H 17 97 11/27/24 12:00 92 H 14 163/98 H 97 11/27/24 11:50 96 H 11/27/24 11:45 90 20 171/103 H 98 11/27/24 11:35 72 19 142/100 H 96 11/27/24 11:30 84 17 139/80 96 11/27/24 11:25 11/27/24 11:25 11/27/24 11:22 51 L 20 115/73 97 11/27/24 11:15 157/101 H 11/27/24 11:15 157/101 H 11/27/24 11:15 157/101 H 11/27/24 11:15 103 H 17 98 11/27/24 11:15 79 18 157/101 H 98 11/27/24 11:14 176/110 H 11/27/24 11:14 90 20 176/110 H 99 11/27/24 11:09 91 H 20 99 11/27/24 11:06 184/123 H 11/27/24 11:06 184/123 H 11/27/24 11:06 91 H 17 184/123 H 98 11/27/24 11:05 90 15 99 11/27/24 10:56 36.9 C 69 20 174/90 H 100 O2 Del Method 11/27/24 12:13 Room Air 11/27/24 12:10 Room Air 11/27/24 12:00 Room Air 11/27/24 11:50 11/27/24 11:45 Room Air 11/27/24 11:35 Room Air 11/27/24 11:30 Room Air 11/27/24 11:25 Room Air 11/27/24 11:25 Room Air 11/27/24 11:22 Room Air 11/27/24 11:15 11/27/24 11:15 11/27/24 11:15 11/27/24 11:15 11/27/24 11:15 Room Air 11/27/24 11:14 11/27/24 11:14 Room Air 11/27/24 11:09 11/27/24 11:06 11/27/24 11:06 11/27/24 11:06 Room Air 11/27/24 11:05 11/27/24 10:56 Room Air Recovery Score Activity: Moves 4 extremities Respiration: Deep Breath/Cough Circulation: +/-20% PreAnes Value Consciousness: Fully Awake Oxygen Saturation: > 92% On Room Air Discharge Sedation Level of Care: Fast Track Phase II Post Sedation Plan On clinical assessment, the patient appears to have tolerated the sedation without complications. Patient is recovering as anticipated. Patient will continue to be monitored by nursing and may be discharged when sedation discharge criteria are met per below protocol. Upon Completions of procedure up to 15 minutes continue every 5 minute vital signs and the P.A.R. score; then discharge to a Phase I or Fast Track to Phase II per the following guidelines: * Discharge Patient to appropriate Phase II area if PAR is 8 or greater or return to pre- procedure baseline. The post - procedure orders will be as directed. * If PAR score is less than 8 or not return to pre-procedure baseline then patient will follow Phase I monitoring till PAR is reached for Phase II. The Phase I may be done in procedure room or may call to secure a Phase I area. * If naloxone or flumazenil are used for reversal, hold in Phase I for continued monitoring from when last reversal dose was given for a minimum of 60 minutes or longer pending the nurse and/or physician discretion of patient condition before discharge to Phase II. Please call the Sedation Physician to re-evaluate and complete post-note for discharge to Phase II area. Do NOT discharge from procedure sedation or Phase 1 until post- sedation evaluation note is complete by procedure /sedation MD Sedation Discharge Instructions to be given to the patient at discharge to home. [facility] Procedure Codes (Charges) Indication for Procedure Indication for procedure: NSTEMI Sedation/Anesthesia Procedure 1: Sedation/Anesthesia: 62180 Mod Sedation by the same physician;Init15 Min Child Age 5 & Up (initial 15 min, start 1228) Total Sedation Time (minutes): 117 Procedure 2: Sedation/Anesthesia: 97203 Mod Sedation by the same physician; Ea [id number] Minutes (additional 102 min, end 1425)
[2024-11-27] MEDS ORDERED: ATROPINE SULFATE 0.1 MG/ML 10ML SYR IV PRN (14:34)
[2024-11-27] MEDS ORDERED: ACETAMINOPHEN 325 MG TAB PO PRN (14:34)
[2024-11-27] MEDS ORDERED: NITROGLYCERIN SL 0.4 MG/TAB TAB SL PRN (14:34)
[2024-11-27] MEDS ORDERED: ONDANSETRON INJ 2 MG/ML 2 ML VIAL IV PRN (14:34)
[2024-11-27] MEDS ORDERED: hydrALAZINE HCL 20 MG/ML VIAL IV PRN (14:40)
[2024-11-27] MEDS: Heparin IV Adult Wt-Based Low-Dose *NO* INITIAL Bolus Protocol IV STA (15:12)
[2024-11-27] MEDS: POTASSIUM CHLORIDE CRTAB 20 MEQ TABCR PO STA (15:18)
[2024-11-27 15:44] LABS: Hematocrit (blood only) 44.1 % (42.0-52.0); Hemoglobin 15.3 g/dl (14.0-18.0); Mean Corpuscular Hemoglobin 29.8 pg (25.0-34.0); Mean Corpuscular Hgb Conc 34.7 g/dL (32.0-36.0); Mean Platelet Volume 10.2 fL (9.4-12.4); Platelet Count 190 K/uL (130-400); RDW Coefficient of Variation 12.4 % (11.5-14.5); RDW Standard Deviation 38.8 fL (36.4-46.3); Red Blood Count 5.13 M/uL (4.70-6.10)
[2024-11-27 16:01] LABS: Basophils # (auto) 0.02 K/uL (0.00-0.20); Basophils % (auto) 0.1 %; Eosinophils # (auto) 0.04 K/uL (0.00-0.50); Eosinophils % (auto) 0.3 %; Immature Granulocytes # (auto) 0.05 K/uL (0.01-0.20); Immature Granulocytes % (auto) 0.4 %; Lymphocytes # (auto) 0.74 K/uL (1.20-3.40); Lymphocytes % (auto) 5.4 %; Monocytes # (auto) 0.48 K/uL (0.11-0.59); Monocytes % (auto) 3.5 %; Neutrophils # (auto) 12.27 K/uL (1.40-6.50); Neutrophils % (auto) 90.3 %; RBC Morphology Unremarkable
[2024-11-27 18:10] LABS: ANTI-Xa, UFH(UnfractionatedHep 0.79 IU/ml (0.3-0.7)
[2024-11-27] MEDS: METOPROLOL TARTRATE 25 MG TAB PO SCH (20:23)
[2024-11-27] MEDS: TICAGRELOR 90 MG TAB PO SCH (21:59)
[2024-11-28 05:04] LABS: BUN Creatinine Ratio 11.5 (10-20); Calcium 8.8 mg/dl (8.6-10.3); Creatinine Clr Calc Pharmacy 66.4 ml/min; Magnesium 1.8 mg/dl (1.7-2.4); Potassium 4.1 mmol/L (3.5-5.1)
[2024-11-28] MEDS: MAGNESIUM SULFATE / D5W 1 GM/100 ML BAG IV SCH (06:22)
[2024-11-28 06:37] LABS: Troponin I High Sensitivity 24704.2 pg/ml (0-20)
[2024-11-28 07:05] LABS: Chol HDL Ratio 2.3 (0-5)
[2024-11-28] MEDS: ASPIRIN 81 MG ECTAB PO SCH (07:43)
[2024-11-28] MEDS: ATORVASTATIN 40 MG TAB PO SCH (07:43)
[2024-11-28] MEDS: lisinopril 5 MG TAB PO SCH (07:43)
[2024-11-28 08:32] LABS: Estimated Average Glucose 183 mg/dl
[2024-11-28] MEDS ORDERED: CARBOHYDRATES FOR HYPOGLYCEMIA PO PRN (09:30)
[2024-11-28] MEDS ORDERED: DEXTROSE 50% 50 ML SYRINGE IV PRN (09:30)
[2024-11-28] MEDS ORDERED: GLUCOSE 10 TAB/TUBE PO PRN (09:30)
[2024-11-28] MEDS ORDERED: GLUCOSE 40% GEL 15 GM TUBE PO PRN (09:30)
[2024-11-28] MEDS ORDERED: GLUCAGON FOR INJ 1 MG VIAL SQ PRN (09:30)
--- NOTE | 2024-11-28 09:38 | Critical Care Progress Note ---
Date of Service November 28, 2024 Assessment & Plan (1) Coronary artery disease: (2) Hypertension: (3) Diabetes mellitus: Plan -- STEMI S/p cardiac cath, 4 CARMELITA placed in RCA Continue with dual antiplatelet therapy Troponin peaked. Initial EKG at the time of presentation showed mild elevation of ST elevation in the inferior with reciprocal ST depression in the lateral leads -- Hypertension and dyslipidemia On lisinopril at home. Continue atorvastatin. LDL acceptable. -- Diabetes On metformin at home. A1c 8.0. Start sliding scale and may need long-acting insulin as an outpatient. Diabetes education. ICU hypoglycemia protocol --Prophylaxis VTE: SCDs. GI: None Lines: Peripheral Diet: Cardiac Downgrade out of ICU to PCU status. Admission and Anticipated Discharge Date Admission Date: November 27, 2024 Subjective No acute issues overnight. No tachyarrhythmias. Patient denies chest pain or shortness of breath. No fevers, chills or night sweats. No headache or dizziness. Review of Systems Review of Systems: All systems reviewed & are unremarkable except as noted in HPI & below Physical Exam Physical Exam: Constitutional: No acute distress HEENT: EOMI, PERRLA Respiratory system: Good air entry bilaterally, no wheeze, no rhonchi, no crackles CVS: S1-S2 positive, no murmurs or gallops Abdomen: Soft, nontender, nondistended, positive bowel sounds x4 Extremities: +2 pulses bilaterally radialis/ dorsalis pedis, no cyanosis, no edema Neuro: Awake alert oriented x3 Psych: Normal mood and affect G/U: No Miller Skin: no rashes, warm and dry Lymphatic: no cervical or axillary lymphadenopathy Results & Data Results & Data Vital Signs (Past 12 Hours) Vital Signs Temp Pulse Resp BP Pulse Ox 11/28/24 08:00 85 0 L 92 11/28/24 08:00 123/74 11/28/24 08:00 123/74 11/28/24 07:44 36.8 C 11/28/24 07:00 110/71 11/28/24 07:00 70 0 L 11/28/24 06:00 104/67 11/28/24 06:00 104/67 11/28/24 06:00 104/67 11/28/24 06:00 104/67 11/28/24 06:00 104/67 11/28/24 06:00 104/67 11/28/24 06:00 104/67 11/28/24 06:00 104/67 11/28/24 06:00 104/67 11/28/24 06:00 104/67 11/28/24 06:00 104/67 11/28/24 06:00 104/67 11/28/24 06:00 104/67 11/28/24 06:00 104/67 11/28/24 06:00 104/67 11/28/24 06:00 104/67 11/28/24 06:00 104/67 11/28/24 06:00 104/67 11/28/24 06:00 104/67 11/28/24 06:00 104/67 11/28/24 05:42 66 0 L 95 11/28/24 05:03 83 1 L 95 11/28/24 05:00 98/65 L 11/28/24 05:00 98/65 L 11/28/24 05:00 98/65 L 11/28/24 05:00 98/65 L 11/28/24 05:00 98/65 L 11/28/24 05:00 98/65 L 11/28/24 05:00 98/65 L 11/28/24 05:00 98/65 L 11/28/24 05:00 98/65 L 11/28/24 05:00 98/65 L 11/28/24 05:00 98/65 L 11/28/24 05:00 98/65 L 11/28/24 05:00 98/65 L 11/28/24 05:00 98/65 L 11/28/24 05:00 98/65 L 11/28/24 05:00 98/65 L 11/28/24 05:00 98/65 L 11/28/24 05:00 98/65 L 11/28/24 05:00 98/65 L 11/28/24 04:39 66 0 L 94 11/28/24 04:09 70 0 L 95 11/28/24 04:00 104/67 11/28/24 04:00 104/67 11/28/24 04:00 104/67 11/28/24 04:00 104/67 11/28/24 04:00 104/67 11/28/24 04:00 104/67 11/28/24 04:00 104/67 11/28/24 01:00 90/68 L 11/28/24 01:00 90/68 L 11/28/24 00:39 66 0 L 94 11/28/24 00:03 62 0 L 95 11/28/24 00:00 101/67 11/28/24 00:00 101/67 11/28/24 00:00 101/67 11/28/24 00:00 101/67 11/28/24 00:00 101/67 11/28/24 00:00 101/67 11/28/24 00:00 101/67 11/28/24 00:00 101/67 11/28/24 00:00 101/67 11/28/24 00:00 101/67 11/28/24 00:00 101/67 11/28/24 00:00 101/67 11/28/24 00:00 101/67 11/28/24 00:00 101/11/28/24 00:00 101/67 11/28/24 00:00 101/67 11/28/24 00:00 101/67 11/28/24 00:00 101/67 11/28/24 00:00 101/67 11/28/24 00:00 101/67 11/28/24 00:00 101/11/27/24 23:54 64 0 L 93 11/27/24 23:09 67 20 94 11/27/24 23:00 98/63 L 11/27/24 23:00 98/63 L 11/27/24 23:00 98/63 L 11/27/24 23:00 98/63 L 11/27/24 23:00 98/63 L 11/27/24 23:00 98/63 L 11/27/24 23:00 98/63 L 11/27/24 23:00 98/63 L 11/27/24 23:00 98/63 L 11/27/24 23:00 98/63 L 11/27/24 23:00 98/63 L 11/27/24 23:00 98/63 L 11/27/24 23:00 98/63 L 11/27/24 23:00 98/63 L 11/27/24 23:00 98/63 L 11/27/24 23:00 98/63 L 11/27/24 23:00 98/63 L 11/27/24 23:00 98/63 L 11/27/24 23:00 98/63 L 11/27/24 22:48 84 21 95 11/27/24 22:03 84 21 96 11/27/24 22:00 127/90 11/27/24 22:00 127/90 11/27/24 22:00 127/90 11/27/24 22:00 127/90 11/27/24 22:00 127/90 11/27/24 21:57 91 H 25 H 96 Coding Level of Care Code 89068 SUB INP/OBS CARE 2MIN Diagnoses Coronary artery disease I25.10 Hypertension I10 Diabetes mellitus E11.9
--- NOTE | 2024-11-28 11:49 | Hospitalist Progress Note ---
Date of Service November 28, 2024 Assessment & Plan (1) ST elevation myocardial infarction (STEMI): Plan: Patient was brought to the hospital for chest pain started about 6 to 7 hours prior to presentation. He took aspirin at home and did not subside so he came to the hospital. On arrival in the emergency department, EKG showed some ST changes, troponin was 33, he was subsequently started on heparin by Susie pittman, cardiology was consulted. Plan is to take him to cardiac cath, he is now post CARMELITA x 4 He is stable post stent, denies chest pain Trop beginning to trend down Continue ASA, Ticagrelor, Statin Appreciate cardiology recs (2) Hypertensive emergency: Plan: Now resolved On lisinopril at home, continue Plan Hopefully d/c today or in the next 24 hrs Admission and Anticipated Discharge Date Admission Date: November 27, 2024 Subjective patient seen and examined, stable post stents, denies chest pain Review of Systems Review of Systems: All systems reviewed are negative, apart from the ones contained in the history. Physical Exam Physical Exam: The patient is awake, alert and oriented 3, well developed and well nourished, normocephalic and atraumatic, lying in bed and in no acute distress. HEENT--PERRL, EOMI, mucous membranes and oropharynx mildly dry Neck--supple. No JVD. No bruits. Thyroid normal, trachea midline, no adenopathy. Heart--normal S1 and S2. No murmurs, rubs or gallops. Lungs--clear bilaterally, no respiratory distress, no accessory muscle use. Abdomen--normal bowel sounds and soft. Extremities--no cyanosis or clubbing. No edema. Dermatologic--normal skin turgor, normal color, no abnormal lymph nodes, no rash. Neurologic--cranial nerves II through XII grossly intact. Rheumatologic--normal range of motion. Psychiatric--normal affect. Results & Data Results & Data Vital Signs (Past 12 Hours) Vital Signs Temp Pulse Resp BP Pulse Ox 11/28/24 08:00 85 0 L 92 11/28/24 08:00 123/74 11/28/24 08:00 123/74 11/28/24 07:44 98.3 F 11/28/24 07:00 110/71 11/28/24 07:00 70 0 L 11/28/24 06:00 104/67 11/28/24 06:00 104/67 11/28/24 06:00 104/67 11/28/24 06:00 104/67 11/28/24 06:00 104/67 11/28/24 06:00 104/67 11/28/24 06:00 104/67 11/28/24 06:00 104/67 11/28/24 06:00 104/67 11/28/24 06:00 104/67 11/28/24 06:00 104/67 11/28/24 06:00 104/67 11/28/24 06:00 104/67 11/28/24 06:00 104/67 11/28/24 06:00 104/67 11/28/24 06:00 104/67 11/28/24 06:00 104/67 11/28/24 06:00 104/67 11/28/24 06:00 104/67 11/28/24 06:00 104/67 11/28/24 05:42 66 0 L 95 11/28/24 05:03 83 1 L 95 11/28/24 05:00 98/65 L 11/28/24 05:00 98/65 L 11/28/24 05:00 98/65 L 11/28/24 05:00 98/65 L 11/28/24 05:00 98/65 L 11/28/24 05:00 98/65 L 11/28/24 05:00 98/65 L 11/28/24 05:00 98/65 L 11/28/24 05:00 98/65 L 11/28/24 05:00 98/65 L 11/28/24 05:00 98/65 L 11/28/24 05:00 98/65 L 11/28/24 05:00 98/65 L 11/28/24 05:00 98/65 L 11/28/24 05:00 98/65 L 11/28/24 05:00 98/65 L 11/28/24 05:00 98/65 L 11/28/24 05:00 98/65 L 11/28/24 05:00 98/65 L 11/28/24 04:39 66 0 L 94 11/28/24 04:09 70 0 L 95 11/28/24 04:00 104/67 25 04:00 104/11/28/24 04:00 104/11/28/24 04:00 104/11/28/24 04:00 10411/28/24 04:00 11/28/24 04:00 10411/28/24 01:00 90/68 L 11/28/24 01:00 90/68 L 11/28/24 00:39 66 0 L 94 11/28/24 00:03 62 0 L 95 11/28/24 00:00 11/28/24 00:00 /11/28/24 00:00 /11/28/24 00:00 101/11/28/24 00:00 11/28/24 00:00 11/28/24 00:00 11/28/24 00:00 /11/28/24 00:00 /11/28/24 00:00 11/28/24 00:00 11/28/24 00:00 /11/28/24 00:00 /11/28/24 00:00 101/11/28/24 00:00 101/11/28/24 00:00 101/11/28/24 00:00 /11/28/24 00:00 101/11/28/24 00:00 101/11/28/24 00:00 101/11/28/24 00:00 101/11/27/24 23:54 64 0 L 93 PG Care Time/CCT Total # of Minutes Spent Total Time Spent with Patient: Total time spent is greater than 50% in coordination of care (as documented) at patient's floor/unit and/or counseling patient: Coding Level of Care Code 46129 SUB INP/OBS CARE 2/35MIN Diagnoses ST elevation myocardial infarction (STEMI) I21.11 Involved coronary artery: right coronary artery Hypertensive emergency I16.1 Time Spent (min) 35 (1) ST elevation myocardial infarction (STEMI) Involved coronary artery: right coronary artery Qualified Code(s): I21.11 - ST elevation (STEMI) myocardial infarction involving right coronary artery
--- NOTE | 2024-11-28 11:59 | Electrocardiogram Report ---
Test Reason : Blood Pressure : */* mmHG Vent. Rate : 80 BPM Atrial Rate : 94 BPM P-R Int : 162 ms QRS Dur : 98 ms QT Int : 378 ms P-R-T Axes : 49 52 162 degrees QTcB Int : 435 ms Sinus rhythm with marked sinus arrhythmia Inferior injury pattern * ACUTE [place] Abnormal ECG No previous ECGs available Confirmed by Michel Denton ([id number]) on 11/28/2024 11:59:21 AM Referred By: REFERRED SELF Confirmed By: Michel Denton
--- NOTE | 2024-11-28 11:59 | Electrocardiogram Report ---
Test Reason : Blood Pressure : */* mmHG Vent. Rate : 77 BPM Atrial Rate : 91 BPM P-R Int : 172 ms QRS Dur : 100 ms QT Int : 386 ms P-R-T Axes : 55 51 141 degrees QTcB Int : 436 ms Sinus rhythm with marked sinus arrhythmia Possible Inferior infarct (cited on or before 27-Nov-2024) Poor R wave progression, consider anterior KS vs. lead placement vs. LVH Abnormal ECG When compared with ECG of 27-Nov-2024 11:02, (unconfirmed) No significant change was found Confirmed by Michel Denton ([id number]) on 11/28/2024 11:58:36 AM Referred By: Confirmed By: Michel Denton
--- NOTE | 2024-11-28 12:06 | Electrocardiogram Report ---
Test Reason : Blood Pressure : */* mmHG Vent. Rate : 103 BPM Atrial Rate : 103 BPM P-R Int : 174 ms QRS Dur : 80 ms QT Int : 356 ms P-R-T Axes : 55 -1 61 degrees QTcB Int : 466 ms Sinus tachycardia Inferior infarct (cited on or before 27-Nov-2024) Abnormal ECG When compared with ECG of 27-Nov-2024 11:08, (unconfirmed) Questionable change in QRS duration Criteria for Anterior infarct are no longer Present Confirmed by Michel Denton ([id number]) on 11/28/2024 12:06:17 PM Referred By: REFERRED SELF Confirmed By: Michel Denton
[2024-11-28] MEDS: INSULIN ASPART PER UNIT CHARGE SC SCH (12:32)
--- NOTE | 2024-11-28 12:43 | Cardiac Catheterization ---
[facility] Data: Card Filer Cardiac Status Clinical evaluation leading to the procedure CAD Presenation: Non STEMI Anginal Classification: CCS IV Heart Failure: No Cardiogenic Shock within 24 Hours: No Cardiac Arrest within 24 Hours: No Imaging Studies Past 6 Months: No Stress Studies Past 6 Months: No Coronary Anatomy Dominant: Right Left Main (% Stenosis): Normal (Up to 20%) LAD (% Stenosis): Proximal (Mild diffuse) and Distal (Intramyocardial bridging, apical 70%) D1 (% Stenosis): Proximal (50 to 70%, small vessel) D2 (% Stenosis): Ostial (80%, small vessel) Circumflex (% Stenosis): Ostial (30%) OM1 (% Stenosis): Normal (Scattered less than 40%) L PL1 (% Stenosis): Normal RCA (% Stenosis): Proximal (100%) Diagnostic Physicians Name: Conrado Leblanc MD, PhD Closure Device Percutaneous Entry Location: Radial Closure Device: Radial Band Recommendations: Medical Therapy and/or Counseling and PCI without planned CABG PCI Indication: PCI for high risk Non-ALLYSON Lesion Segment Name: Proximal through distal RCA Culprit Artery: Yes Stenosis Prior to Rx (%): 100% Chronic Total Occlusion: No Pre-Procedure HARESH Flow: 0 Previously Treated Lesion: No Lesion Complexity: High/C Lesion Length (mm): 65 Thrombus Present: Yes Bifurcation Lesion: No Guidewire Across Lesion: Yes Intraprocedure Events Significant Disection: No Perforation: No Cardiac Cath Procedure Full Procedure Date November 27, 2024 Pre-Procedure Diagnosis Pre-Procedure Diagnosis: Non STEMI AUC Score AUC Score: 08 Post-Procedure Diagnosis Post-Procedure Diagnosis: Severe CAD Procedure(s) Performed Procedure(s) Performed: Coronary Angiography, Drug Eluting Stent and Procedure (Intracoronary lithotripsy) Commercial [employer]raiser Conrado Leblanc MD, PhD Estimated Blood Loss Estimated Blood Loss: 10 cc Medication(s) Medication(s): Atropine, Fentanyl, Heparin, Integrilin, Lidocaine 1%, Nicardipine, Nitroglycerin and Versed Summary of Findings Brief description: Patient was brought to the cardiac catheterization suite where he was shaved and prepped in a sterile fashion. Sedated using IV Versed and fentanyl. Soft tissues of the right wrist were anesthetized using 2 mL of 1% Xylocaine. The right radial artery was accessed with a modified Seldinger technique and a 6 [place] radial artery glide sheath was placed. Patient was provided anticoagulation with IV heparin and antispasmodics including nicardipine and nitroglycerin. All catheters were advanced and exchanged over a 0.035 J-tip wire. Left coronary angiography in orthogonal views with a 5 [place] 4 diagnostic catheter. Right coronary angiography in orthogonal views with a 5 [place] 4 diagnostic catheter. Diagnostic catheters were removed. Decision was made to proceed with attempted PCI of the RCA ACT was checked and additional heparin was provided as needed to maintain therapeutic anticoagulation. This was repeated multiple times throughout the case. A 6 [place] JR4 guide catheter was used to engage the RCA. We attempted to advance a BMW universal guidewire but could not get past the mid portion. We therefore changed to a run-through wire and after multiple attempts we finally were able to advance the wire distally. Patient was started on Integrilin as a double bolus administration followed by drip. A 1.5 x 8 mm trek balloon was advanced and used to predilate multiple areas in the disease segment up to 14 nicole. A 2.5 x 20 mm trek balloon was advanced and predilatation performed at the most severe stenosis in the midsegment. Patient was provided intracoronary nitroglycerin. Coronary angiography was repeated. We initially attempted a 2.5 x 12 mm shockwave but the hub was broken and we had to remove the balloon. Intracoronary lithotripsy was then performed with a 3.0 x 12 mm shockwave balloon beginning distally. 4 nicole and 2 runs. The proximal and mid lesions were also treated at 6 nicole and 2 runs. Additional predilatation with a 2.5 x 15 mm NC trek balloon at 12 nicole x 2. Balloon removed. Additional intracoronary lithotripsy with the shockwave 3.0 x 12 mm balloon at 6 nicole and 2 runs in the proximal to ostial RCA. Additional predilatation of the proximal to ostial RCA with a 3.25 x 15 mm NC Robert balloon at 14 nicole. Balloon removed. A GuideLiner was introduced over the wire. A 3.0 x 15 mm Cato drug-eluting stent was then advanced (with a good bit of difficulty) and positioned across the mid to distal lesion where it was deployed at 15 nicole. Stent balloon removed. 3.0 x 38 Bruce drug-eluting stent was advanced using the guide liner and positioned with its distal edge overlapped with the proximal edge of the first stent and its proximal edge in the proximal vessel. Deployed at 16 nicole. 3.0 x 8 mm Bruce drug-eluting stent was then positioned from the ostium and overlapped with the proximal edge of the long stent. It was deployed at 16 nicole. Stent balloon removed. Postdilatation of the stent train beginning distally using a 3.25 x 15 mm NC Robert balloon. This was performed sequentially from distal to ostial at 14 nicole, 14 nicole, 15 nicole, and 18 nicole. Balloon removed. Finally, a 3.0 x 12 mm Cato drug-eluting stent was advanced and positioned across the most distal lesion. It was overlapped with the distal edge of the previous distal stent and then deployed at 18 nicole. Stent balloon was then used to post dilate the stent train again at 18 nicole distally, 20 nicole mid, 20 nicole proximal, and 20 nicole ostial to proximal. Balloon was then removed. GuideLiner also removed. Final angiographic evaluation was performed. Gu idewire was removed. Guide catheter was removed over the wire. Patient was provided additional IV heparin after the ACT was checked. Integrilin was discontinued. Radial artery sheath was removed and hemostasis was obtained using the TR band. Patient was hemodynamically stable and asymptomatic. He was returned to the recovery area. This ended the case. Coronary angiography findings: EMD-kikzv-ecxynsn vessel bifurcating into LAD and circumflex. Mild less than 20% stenosis. LPW-vfltn-mmazwjo and transapical. Heavily calcified proximally with mild diffuse disease, mid segment has mild luminal irregularities, the early distal segment has intramyocardial bridging and then near the apex there is a focal 70% stenosis. LAD gives a small first diagonal which is long and has proximal 50 to 70% stenosis. This is followed by a small caliber second diagonal which has ostial and proximal 80% stenosis. Branch vessels are too small for PCI. YOe-mqlel-vnmrjxk and nondominant. Ostial up to 30% stenosis. Vessel travels in the AV groove where the proximal and mid segment have only mild luminal irregularities. There is a large branching OM1 with scattered less than 40% stenosis and there is a small caliber posterior lateral. RCA-this is a large-caliber and dominant vessel. Proximally there is calcification in the vessel lumen appears very small compared to more distally. The vessel is 100% occluded in the proximal segment and there is some contrast staining. HARESH 0 flow. The PDA and posterolateral branches are seen to fill via nlrp-wx-bckay collateralization. PCI of RCA-there is a long stent train beginning at the ostium of the RCA and continuing throughout the proximal, mid, and early distal segments. Only mild luminal irregularities post PCI. HARESH-3 flow post PCI No evidence of dissection or perforation post PCI Summary: 1. Severe RCA disease which is complex, calcified, and likely most of which is chronic. Mild disease in the left coronary system as described. 2. Successful complex PCI of the RCA requiring multiple balloons, intracoronary lithotripsy, and a long stent train using 4 overlapped drug-eluting stents. 3. Patient shall remain on dual antiplatelet therapy with aspirin 81 mg daily and Brilinta 90 mg p.o. twice daily for at least 1 to 2 years and preferably indefinitely given his complex and extensive stenting. 4. Guideline directed medical therapy to include low-dose aspirin, high intensity statin therapy, beta-oxana, and SKYLA inhibitor/ARB as tolerated. 5. We will obtain an echocardiogram. Hemodynamics Rest Ao:: 130/92 mmHg Final Ao: 117/76 mmHg LV: Not performed Recommendations Recommendations: Medical Therapy and/or Counseling and PCI without planned CABG Radiation Exposure (mGy) 5036 mGy Contrast (mls) 445 mL Anesthesia 4 mg Versed, 100 mcg fentanyl IV. Start time 1228, end time 1425 Procedural Complication(s) None Disposition ICU I attest to the content of the Intraoperative Record and any orders documented therein. Any exceptions are noted below. [facility] Card Cath Procedure Codes Cardiac Catheterization Procedure 1: Cardiovascular Cath Procedures: 70177 Coronaries Moderate Sedation Procedure 1: Sedation/Anesthesia: 08417 Mod Sedation by the same physician;Init15 Min Child Age 5 & Up (Initial 15 minutes, start time 1228) Procedure 2: Sedation/Anesthesia: 66162 Mod Sedation by the same physician; Ea [id number] Minutes (Additional 102 minutes, end time 1425) Angioplasty Procedure 1: Cardiovascular Angioplasty Procedures: 21765 Perq Trluml Coronry Lithotrp Stenting Procedure 1: Cardiovascular Stent Procedures: 40440 Perc transluminal revascularization of acute sub/total occl, aMI (RCA) PG Care Time/CCT Total # of Minutes Spent Total Time Spent with Patient: Total time spent is greater than 50% in coordination of care (as documented) at patient's floor/unit and/or counseling patient:
--- NOTE | 2024-11-28 13:25 | XCELERA ---
[id number] \\[id number]
--- NOTE | 2024-11-28 14:00 | Cardiology Progress Note ---
Date of Service November 28, 2024 Assessment & Plan (1) Non-ST elevation PR (NSTEMI): Plan: Successful complex PCI to the RCA with 4 overlapped drug-eluting stents. Thus far, no evidence of complication. He did receive a relatively high contrast load so we do need to watch for renal dysfunction. Also with radiation dose which was higher than usual (just over 5000 mGy). He could have erythema but unlikely to have epilation. We will monitor as outpatient. He will remain on dual antiplatelet therapy with aspirin 81 mg daily and Brilinta 90 mg p.o. twice daily. He would remain on this for 1 to 2 years at minimum given the complex and extensive stenting. He had a significant elevation in his troponin, however, his echo was reassuring and that that showed only mild wall motion abnormality and preserved low normal EF. I anticipate his EF will improve further as his myocardial injury recovers. Patient will be placed on standard postprocedure care and limitations. I have strongly encouraged him to participate in cardiac rehab. He plans on air travel to [place] in 5 days which should be safe as long as he does no heavy lifting or does not overexert himself. I do encourage him to get up and walk around every 2 hours. (2) Coronary artery disease: Plan: Severe RCA disease status post PCI. Mild residual disease in the left coronary system. His heart rate and blood pressure are at target. He will continue with guideline directed medical therapy for secondary prevention including low-dose aspirin, high intensity statin therapy, lisinopril, and metoprolol to tartrate. (3) Hypertension: Plan: Blood pressure is adequately controlled at this time. Continue lisinopril 5 mg daily and metoprolol tartrate 25 mg p.o. twice daily. We will adjust his medical regimen as an outpatient. (4) Atherogenic dyslipidemia: Plan: Patient has been on atorvastatin 40 mg daily and his fasting lipids are actually pretty good. However, despite this he had extensive RCA disease. For now, he will remain on a atorvastatin 40 mg daily but we will consider either increased to 80 mg or change to rosuvastatin. Plan Patient is appropriate for transfer to stepdown unit on telemetry. As long as his renal function remains normal tomorrow and he does not have any unforeseen complications then he would be ready for discharge tomorrow. Patient will see me in follow-up in the office within the next 1 to 3 weeks. The office will call with the appointment. Admission and Anticipated Discharge Date Admission Date: November 27, 2024 Subjective Patient was seen in the ICU. Doing well since AMI and stenting yesterday. Echo was completed. He denies any recurrent chest pain, pain at the access site, or dyspnea. He has been ambulating around the room but no further than that at this point. His family is in the room with him. The patient's and his family's questions were answered in full. They voiced understanding. Review of Systems Review of Systems: Negative except as per HPI Physical Exam Constitutional: WD/WN, vitals as above Eyes: Extraocular muscles intact. Sclera are anicteric. ENMT: Oral mucosa is pink moist and intact Neck: No JVD Respiratory: Clear to auscultation bilaterally. No wheezing, rhonchi, or rales. Cardiovascular: Regular rate and rhythm. S4 gallop. No rubs or murmurs appreciated in the emergency department. No edema. Good distal pulses. Musculoskeletal: no cyanosis or clubbing, extremities motor strength 5/5 Neurologic: Cognition is intact. Speech is fluent. No focal deficits. Psychiatric: A+Ox3, euthymic affect Results & Data Vital Signs (Past 12 Hours) Vital Signs Temp Pulse Resp BP Pulse Ox 11/28/24 08:00 85 0 L 92 11/28/24 08:00 123/74 11/28/24 08:00 123/74 11/28/24 07:44 36.8 C 11/28/24 07:00 110/71 11/28/24 07:00 70 0 L 11/28/24 06:00 104/67 11/28/24 06:00 104/67 11/28/24 06:00 104/67 11/28/24 06:00 104/67 11/28/24 06:00 104/67 11/28/24 06:00 104/67 11/28/24 06:00 104/67 11/28/24 06:00 104/67 11/28/24 06:00 104/67 11/28/24 06:00 104/67 11/28/24 06:00 104/67 11/28/24 06:00 104/67 11/28/24 06:00 104/67 11/28/24 06:00 104/67 11/28/24 06:00 104/67 11/28/24 06:00 104/67 11/28/24 06:00 104/67 11/28/24 06:00 104/67 11/28/24 06:00 104/67 11/28/24 06:00 104/67 11/28/24 05:42 66 0 L 95 11/28/24 05:03 83 1 L 95 11/28/24 05:00 98/65 L 11/28/24 05:00 98/65 L 11/28/24 05:00 98/65 L 11/28/24 05:00 98/65 L 11/28/24 05:00 98/65 L 11/28/24 05:00 98/65 L 11/28/24 05:00 98/65 L 11/28/24 05:00 98/65 L 11/28/24 05:00 98/65 L 11/28/24 05:00 98/65 L 11/28/24 05:00 98/65 L 11/28/24 05:00 98/65 L 11/28/24 05:00 98/65 L 11/28/24 05:00 98/65 L 11/28/24 05:00 98/65 L 11/28/24 05:00 98/65 L 11/28/24 05:00 98/65 L 11/28/24 05:00 98/65 L 11/28/24 05:00 98/65 L 11/28/24 04:39 66 0 L 94 11/28/24 04:09 70 0 L 95 11/28/24 04:00 104/67 11/28/24 04:00 104/67 11/28/24 04:00 104/67 11/28/24 04:00 104/67 11/28/24 04:00 104/67 11/28/24 04:00 104/67 11/28/24 04:00 104/67 PG Care Time/CCT Total # of Minutes Spent Total Time Spent with Patient: Total time spent is greater than 50% in coordination of care (as documented) at patient's floor/unit and/or counseling patient: Coding Level of Care Code 12238 SUB INP/OBS CARE 3/50MIN Diagnoses Non-ST elevation PR (NSTEMI) I21.4 Coronary artery disease I25.10 Hypertension I10 Atherogenic dyslipidemia E78.5
[2024-11-28 14:28] LABS: Basophils # (auto) 0.02 K/uL (0.00-0.20); Basophils % (auto) 0.2 %; Eosinophils # (auto) 0.04 K/uL (0.00-0.50); Eosinophils % (auto) 0.4 %; Hematocrit (blood only) 43.9 % (42.0-52.0); Immature Granulocytes # (auto) 0.02 K/uL (0.01-0.20); Immature Granulocytes % (auto) 0.2 %; Lymphocytes # (auto) 1.23 K/uL (1.20-3.40); Lymphocytes % (auto) 12.8 %; Mean Corpuscular Hemoglobin 29.9 pg (25.0-34.0); Mean Corpuscular Hgb Conc 34.2 g/dL (32.0-36.0); Mean Corpuscular Volume 87.5 fL (80.0-100.0); Mean Platelet Volume 10.2 fL (9.4-12.4); Monocytes # (auto) 1.01 K/uL (0.11-0.59); Monocytes % (auto) 10.5 %; Neutrophils # (auto) 7.27 K/uL (1.40-6.50); Neutrophils % (auto) 75.9 %; Platelet Count 225 K/uL (130-400); RDW Standard Deviation 41.1 fL (36.4-46.3); Red Blood Count 5.02 M/uL (4.70-6.10); White Blood Count 9.59 K/ul (4.8-10.8)
[2024-11-29 05:24] LABS: Calcium 8.4 mg/dl (8.6-10.3); Creatinine Clr Calc Pharmacy 68.9 ml/min
[2024-11-29 08:55] VITALS: BP 111/69; RESP 16; TEMP 98.2; O2SAT 99
[2024-11-29 08:57] VITALS: PULSE 68
--- NOTE | 2024-11-29 09:13 | Discharge Summary ---
Date of Service November 29, 2024 Admission HPI Per Admitting Provider This is a 59-year-old male with a history of type 2 diabetes, hypertension, hyperlipidemia, who was brought to the hospital for chest pains. According to the patient, pain started about 6 to 7 hours prior to presentation. At home, he took aspirin and some NSAIDs but the pain did not improve. Upon arrival to the emergency department, an EKG was done which showed some changes of T wave inversion, blood pressure was also elevated. Also in the ED, he was started on heparin by weight and also given Brilinta,Cardiology was consulted after a heart alert was called at the decision was made to take him immediately to the cardiac [facility]. He will go to ICU post cath Admission Exam (Per Admitting) Constitutional The patient is awake, alert and oriented 3, well developed and well nourished, normocephalic and atraumatic, lying in bed and in no acute distress. HEENT--PERRL, EOMI, mucous membranes and oropharynx mildly dry Neck--supple. No JVD. No bruits. Thyroid normal, trachea midline, no adenopathy. Heart--normal S1 and S2. No murmurs, rubs or gallops. Lungs--clear bilaterally, no respiratory distress, no accessory muscle use. Abdomen--normal bowel sounds and soft. Extremities--no cyanosis or clubbing. No edema. Dermatologic--normal skin turgor, normal color, no abnormal lymph nodes, no rash. Neurologic--cranial nerves II through XII grossly intact. Rheumatologic--normal range of motion. Psychiatric--normal affect. Discharge Data Consultations 11/27/24 11:15 ED Decision to Admit Stat Procedures Performed Operation Date: 11/27/24 11:00 Actual Procedures p Cineradiography w/Routine Exam - Conrado Leblanc MD, PhD p Cath, Coronaries ONLY (no LV) - Conrado Leblanc MD, PhD s Perc Castro Coronary Lithotripsy - Conrado Leblanc MD, PhD s Drug Eluting Stent SGl Vessel - Conrado Leblanc MD, PhD Hospital Course (1) ST elevation myocardial infarction (STEMI): Patient was brought to the hospital for chest pain started about 6 to 7 hours prior to presentation. He took aspirin at home and did not subside so he came to the hospital. On arrival in the emergency department, EKG showed some ST changes, troponin was 33, he was subsequently started on heparin by Susie pittman, cardiology was consulted. Plan is to take him to cardiac cath, he is now post CARMELITA x 4 He is stable post stent, denies chest pain Trop beginning to trend down Discharge him on ASA, Ticagrelor, Statin, metoprolol Appreciate cardiology recs (2) Hypertensive emergency: Now resolved On lisinopril at home, continue Plan Hopefully d/c today or in the next 24 hrs Coding Level of Care Code 40276 INP/OBS DISCH >[address] elevation myocardial infarction (STEMI) I21.11 Involved coronary artery: right coronary artery Hypertensive emergency I16.1 Time Spent (min) 35
== END 2024-11-29 10:41 | disposition home or self-care (01) | DRG 323 ==
LOC: ED 10:53 → OR 12:18 → 1E 12:37
PROC: CLB.CCO (2024-11-27 11:00)